=== PATIENT | female | born 1950 | race Caucasian/White ===

== ENCOUNTER 2020-06-20 14:18 | Inpatient (IN) ==
[2020-06-20] MEDS ORDERED: oxyCODONE/Acetamin 5/325 mg TAB PO ONE (17:53)
[2020-06-21 05:13] LABS: ABS Basophils 0.1 10^3/ul (0-0.2); ABS Eosinophils 0.2 10^3/ul (0-0.6); ABS Lymphocytes 2.2 10^3/ul (1.0-4.8); ABS Monocytes 0.4 10^3/ul (0-0.8); ABS Neutrophils 3.3 10^3/ul (1.5-7.7); Hematocrit 38 % (35-47); Hemoglobin 13.1 g/dL (12.0-16.0); Lymphocyte % 35.8 %; Mean Corpuscular HGB Conc 34 g/dL (31-36); Mean Corpuscular Hemoglobin 30 pg (27-31); Mean Corpuscular Volume 88 fL (80-97); Mean Platelet Volume 7.2 fL (7.4-10.4); Platelet Count 202 10^3/uL (150-450); Red Blood Count 4.31 10^6 /uL (3.70-4.87); Red Cell Distribution Width 13 % (10-15); White Blood Count 6.2 10^3/uL (3.5-10.8)
[2020-06-21 05:31] LABS: Calcium 9.3 mg/dL (8.6-10.3); EGFR African American 57.3 (>60); EGFR Non-African American 47.3 (>60); Potassium 3.1 mmol/L (3.5-5.0)
[2020-06-21] MEDS: oxyCODONE/Acetamin 5/325 mg TAB PO PRN (07:32)
[2020-06-21 08:27] LABS: Magnesium 2.1 mg/dL (1.9-2.7)
[2020-06-21] MEDS ORDERED: Potassium Chlor 20 meq TAB.ER PO ONE (10:46)
[2020-06-21 18:25] LABS: TSH Ultra Thyroid Stim Horm 4.95 mcIU/mL (0.34-5.60)
[2020-06-21 19:15] LABS: Urine Appearance Clear; Urine Bilirubin Negative (Negative); Urine Blood Negative (Negative); Urine Color Yellow; Urine Glucose Negative (Negative); Urine Ketones Negative (Negative); Urine Nitrite Negative (Negative); Urine Protein Negative (Negative); Urine Specific Gravity 1.009 (1.002-1.030); Urine Urobilinogen Negative (Negative)
[2020-06-21 20:12] LABS: Urine Bacteria 1+ (Absent); Urine Red Blood Cell Trace(0-2/hpf) (Absent); Urine Squamous Epithelial Cell Present (Absent); Urine White Blood Cell 1+(6-10/hpf) (Absent)
[2020-06-22 04:32] LABS: Calcium 9.2 mg/dL (8.6-10.3); EGFR African American 47.9 (>60); EGFR Non-African American 39.6 (>60); Potassium 3.9 mmol/L (3.5-5.0)
[2020-06-22 11:17] VITALS: BP 128/62
[2020-06-22] MEDS: oxyCODONE/Acetamin 5/325 mg TAB PO PRN (13:58)
== END 2020-06-22 17:50 | disposition home or self-care (01) | DRG 552 ==
LOC: ED 14:18 → SSU 14:18
PROVIDERS: ADMIT Hospitalist; ATTEND Internal Medicine